=== PATIENT | female | born 1980 | race Caucasian/White ===

== ENCOUNTER 2022-07-30 09:03 | Outpatient (CLI) | payer BC, SELFPAY ==
[2022-07-30 19:46] LABS: Basophils Percent Auto 0.4 % (0.2-1.2); Eosinophils Absolute Auto 0.2 K/mm3 (0-0.3); Eosinophils Percent Auto 2.4 % (0-4.4); Hematocrit 44.7 % (37.0-47.0); Immature Granulocyte Absolute 0.02 K/mm3 (0.00-0.031); Immature Granulocyte Percent A 0.3 % (0-0.5); Lymphocytes Absolute Auto 1.95 K/mm3 (0.9-3.2); Lymphocytes Percent Auto 26.4 % (18.3-44.2); Mean Corpuscular HGB Conc 31.3 g/dl (32-36); Mean Corpuscular Hemoglobin 29.6 pg (26-34); Mean Corpuscular Volume 94.5 fl (80-100); Mean Platelet Volume 10.8 fl (7.4-10.4); Monocytes Absolute Auto 0.5 K/mm3 (0.1-0.6); Monocytes Percent Auto 6.1 % (2.6-8.5); Neutrophils Absolute Auto 4.8 K/mm3 (1.3-6.7); Neutrophils Percent Auto 64.4 % (45.5-73.1); Platelet Count Result 326 k/mm3 (150-375); Red Blood Count 4.73 M/mm3 (4.2-5.4); Red Cell Distribution Width 13.2 % (11.5-14.5); White Blood Count 7.4 K/mm3 (4.5-10.0)
[2022-07-30 20:51] LABS: Alanine Aminotransferase 28 U/L (6-35); Albumin Level 4.5 g/dL (3.5-5.1); Alkaline Phosphatase 74 U/L (38-126); Anion Gap 8 mmol/L (8-16); Aspartate Amino Transferase 59 U/L (14-36); Bilirubin,Total 0.5 mg/dL (0.2-1.3); Blood Urea Nitrogen 14 mg/dL (7-17); Calcium 8.4 mg/dL (8.4-10.2); Carbon Dioxide 31 mmol/L (22-30); Chloride 101 mmol/L (98-107); Cholesterol 202 mg/dL (0-200); Estimated Glomerular Filt Rate > 60; Glucose 82 mg/dL (65-110); HDL Direct 31 mg/dL; Potassium 4.3 mmol/L (3.4-5.0); Sodium 140 mmol/L (137-145); Triglycerides 213 mg/dL (<150)
[2022-07-30 21:03] LABS: LDL Cholesterol Direct 108 mg/dL
== END 2022-07-30 09:04 | disposition home or self-care (01) ==
LOC: ANHBWCLAB 09:04
PROVIDERS: PCP Family Medicine; Visit Provider Nurse Practitioner
DX: E66.9 Obesity, unspecified (principal); N39.3 Stress incontinence (female) (male); E78.5 Hyperlipidemia, unspecified; Z87.19 Personal history of other diseases of the digestive system; T78.40XA Allergy, unspecified, initial encounter
CPT/HCPCS: 36415; 80053; 80061; 84443; 85025

== ENCOUNTER → 2022-11-19 11:03 | Outpatient (CLI) | payer BC, SELFPAY ==
--- NOTE | ~2022-11-19 | CT_ITS ---
EXAMINATION: CT IAC/mastoids BI wo con DATE: 11/19/2022 11:47 INDICATION: Otalgia of left ear. TECHNIQUE: Computed tomography (CT) of the temporal bones was performed without intravenous contrast. Automated exposure control and iterative reconstruction technique were employed. The dose-length pro duct was 222.66 mGy-cm. COMPARISON: None FINDINGS: The visualized portions of the parotid glands are unremarkable. RIGHT TEMPORAL BONE: The internal auditory canal, cochlea, vestibule, semicircular canals, vestibular aqueduct, carotid ca nal, jugular bulb, facial nerve course, ossicles, Prussak space, scutum, tympanic membrane, mastoid a ir cells, and external auditory canal are normal. LEFT TEMPORAL BONE: The internal auditory canal, cochlea, vestibule, semicircular canals, vestibular aqueduct, carotid ca nal, jugular bulb, facial nerve course, ossicles, Prussak space, scutum, tympanic membrane, mastoid a ir cells, and external auditory canal are normal IMPRESSION: 1. Normal temporal bones. Reviewed, dictated and finalized at location E. IMPRESSION: 1. Normal temporal bones.
== END ==
PROVIDERS: PCP Otolaryngology; Visit Provider Otolaryngology
DX: H92.02 Otalgia, left ear (principal)
CPT/HCPCS: 70480

== ENCOUNTER 2022-12-23 07:31 | Outpatient (CLI) | payer BC, SELFPAY ==
[2022-12-23 18:30] LABS: Hematocrit 44.2 % (37.0-47.0); Hemoglobin 13.6 g/dL (12.0-15.0); Mean Corpuscular HGB Conc 30.8 g/dl (32-36); Mean Corpuscular Hemoglobin 29.7 pg (26-34); Mean Corpuscular Volume 96.5 fl (80-100); Platelet Count Result 287 k/mm3 (150-375); Red Blood Count 4.58 M/mm3 (4.2-5.4); Red Cell Distribution Width 12.8 % (11.5-14.5); White Blood Count 11.1 K/mm3 (4.5-10.0)
[2022-12-23 18:40] LABS: Alanine Aminotransferase 18 U/L (6-35); Albumin Level 4.4 g/dL (3.5-5.1); Alkaline Phosphatase 75 U/L (38-126); Anion Gap 7 mmol/L (8-16); Aspartate Amino Transferase 36 U/L (14-36); Bilirubin,Total 0.6 mg/dL (0.2-1.3); Blood Urea Nitrogen 19 mg/dL (7-17); Calcium 8.7 mg/dL (8.4-10.2); Carbon Dioxide 29 mmol/L (22-30); Chloride 102 mmol/L (98-107); Estimated Glomerular Filt Rate 54; Glucose 86 mg/dL (65-110); Sodium 138 mmol/L (137-145)
== END 2022-12-23 07:32 | disposition home or self-care (01) ==
LOC: ANHBWCLAB 07:32
PROVIDERS: PCP Nurse Practitioner Adult Health; Visit Provider Nurse Practitioner Adult Health
DX: R53.83 Other fatigue (principal)
CPT/HCPCS: 36415; 80053; 84443; 85027

== ENCOUNTER 2023-02-04 10:29 | Outpatient (CLI) | payer BC, SELFPAY ==
[2023-02-04 19:27] LABS: Alanine Aminotransferase 25 U/L (6-35); Albumin Level 4.1 g/dL (3.5-5.1); Alkaline Phosphatase 67 U/L (38-126); Aspartate Amino Transferase 64 U/L (14-36); Bilirubin,Total 0.4 mg/dL (0.2-1.3)
== END 2023-02-04 10:30 | disposition home or self-care (01) ==
LOC: ANHBWCLAB 10:30
PROVIDERS: PCP Nurse Practitioner Adult Health; Visit Provider Nurse Practitioner Adult Health
DX: Z51.81 Encounter for therapeutic drug level monitoring (principal)
CPT/HCPCS: 36415; 80076

== ENCOUNTER 2023-06-03 07:23 | Outpatient (CLI) | payer BC, SELFPAY ==
[2023-06-03 19:14] LABS: Basophils Percent Auto 0.5 % (0.2-1.2); Eosinophils Absolute Auto 0.2 K/mm3 (0-0.3); Eosinophils Percent Auto 2.9 % (0-4.4); Hematocrit 43.1 % (37.0-47.0); Hemoglobin 13.5 g/dL (12.0-15.0); Immature Granulocyte Absolute 0.02 K/mm3 (0.00-0.031); Immature Granulocyte Percent A 0.2 % (0-0.5); Lymphocytes Absolute Auto 2.28 K/mm3 (0.9-3.2); Lymphocytes Percent Auto 27.9 % (18.3-44.2); Mean Corpuscular HGB Conc 31.3 g/dl (32-36); Mean Corpuscular Hemoglobin 29.5 pg (26-34); Mean Corpuscular Volume 94.3 fl (80-100); Mean Platelet Volume 10.9 fl (7.4-10.4); Monocytes Absolute Auto 0.6 K/mm3 (0.1-0.6); Monocytes Percent Auto 7.5 % (2.6-8.5); Platelet Count Result 305 k/mm3 (150-375); Red Blood Count 4.57 M/mm3 (4.2-5.4); White Blood Count 8.2 K/mm3 (4.5-10.0)
[2023-06-03 19:32] LABS: Alanine Aminotransferase 18 U/L (6-35); Albumin Level 4.2 g/dL (3.5-5.1); Alkaline Phosphatase 69 U/L (38-126); Anion Gap 4 mmol/L (8-16); Aspartate Amino Transferase 45 U/L (14-36); Bilirubin,Total 0.6 mg/dL (0.2-1.3); Blood Urea Nitrogen 18 mg/dL (7-17); Calcium 8.7 mg/dL (8.4-10.2); Carbon Dioxide 28 mmol/L (22-30); Chloride 103 mmol/L (98-107); Cholesterol 219 mg/dL (0-200); Estimated Glomerular Filt Rate > 60; Glucose 80 mg/dL (65-110); HDL Direct 30 mg/dL; Potassium 3.8 mmol/L (3.4-5.0); Sodium 135 mmol/L (137-145); Triglycerides 235 mg/dL (<150)
[2023-06-03 19:43] LABS: LDL Cholesterol Direct 126 mg/dL
[2023-06-05 11:53] LABS: Hemoglobin A1C 5.6 % (<5.7)
== END 2023-06-03 07:24 | disposition home or self-care (01) ==
PROVIDERS: PCP Nurse Practitioner Adult Health; Visit Provider Nurse Practitioner Adult Health
DX: E78.5 Hyperlipidemia, unspecified (principal); E66.9 Obesity, unspecified
CPT/HCPCS: 36415; 80053; 80061; 83036; 84443; 85025

== ENCOUNTER 2023-09-25 15:08 | Outpatient (CLI) | payer BC, SELFPAY ==
--- NOTE | ~2023-09-25 | MM_ITS ---
EXAMINATION: MM screening benja BI w michael HISTORY: Screening TECHNIQUE: Craniocaudal and mediolateral oblique 3-D tomosynthesis images were obtained and synthetic 2-D images were generated. CAD analysis was submitted and interpreted. COMPARISON: No prior mammogram is available for comparison at this institution. BREAST PARENCHYMAL COMPOSITION: Not dense: There are scattered areas of fibroglandular density. FINDINGS: There is no evidence of suspicious mass, calcification, or architectural distortion to sugg est malignancy in either breast. There has been no suspicious interval change. IMPRESSION: 1. No mammographic evidence of malignancy. 2. Recommend routine screening mammography in one year. BI-RADS Category 1: Negative Reviewed, dictated and finalized at location B.
== END 2023-09-25 15:09 ==
LOC: MICIMG 15:09
PROVIDERS: PCP Obstetrics & Gynecology; Visit Provider Obstetrics & Gynecology
DX: Z12.31 Encounter for screening mammogram for malignant neoplasm of breast (principal)
CPT/HCPCS: 77063; 77067

== ENCOUNTER 2023-10-26 08:49 | Outpatient (CLI) | payer BC, SELFPAY ==
[2023-10-26 20:18] LABS: Hematocrit 45.8 % (37.0-47.0); Hemoglobin 14.4 g/dL (12.0-15.0); Mean Corpuscular HGB Conc 31.4 g/dl (32-36); Mean Corpuscular Volume 92.3 fl (80-100); Platelet Count Result 240 k/mm3 (150-375); Red Blood Count 4.96 M/mm3 (4.2-5.4); Red Cell Distribution Width 13.2 % (11.5-14.5); White Blood Count 11.1 K/mm3 (4.5-10.0)
[2023-10-26 20:28] LABS: Alanine Aminotransferase 36 U/L (6-35); Albumin Level 4.5 g/dL (3.5-5.1); Alkaline Phosphatase 71 U/L (38-126); Anion Gap 11 mmol/L (4-12); Aspartate Amino Transferase 65 U/L (14-36); Bilirubin,Total 0.4 mg/dL (0.2-1.3); Blood Urea Nitrogen 13 mg/dL (7-17); Calcium 8.4 mg/dL (8.4-10.2); Carbon Dioxide 26 mmol/L (22-30); Chloride 94 mmol/L (98-107); Estimated Glomerular Filt Rate > 60; Glucose 85 mg/dL (65-110); Potassium 3.9 mmol/L (3.4-5.0); Sodium 131 mmol/L (137-145)
== END 2023-10-26 08:50 | disposition home or self-care (01) ==
LOC: ANHBWCLAB 08:51
PROVIDERS: PCP Nurse Practitioner Adult Health; Visit Provider Nurse Practitioner Adult Health
DX: R53.83 Other fatigue (principal); R00.0 Tachycardia, unspecified
CPT/HCPCS: 36415; 80053; 85027

== ENCOUNTER 2023-12-08 09:10 | Outpatient (CLI) | payer BC, SELFPAY ==
[2023-12-08 19:50] LABS: Alanine Aminotransferase 19 U/L (6-35); Albumin Level 4.3 g/dL (3.5-5.1); Alkaline Phosphatase 64 U/L (38-126); Anion Gap 11 mmol/L (4-12); Aspartate Amino Transferase 32 U/L (14-36); Bilirubin,Total 0.2 mg/dL (0.2-1.3); Blood Urea Nitrogen 18 mg/dL (7-17); Calcium 8.8 mg/dL (8.4-10.2); Carbon Dioxide 26 mmol/L (22-30); Chloride 102 mmol/L (98-107); Estimated Glomerular Filt Rate > 60; Glucose 91 mg/dL (65-110); Sodium 139 mmol/L (137-145)
[2023-12-08 20:56] LABS: Add Urine Microscopic? YES; Appearance Urine Cloudy (Clear); Bacteria Urine 4+ /hpf; Bilirubin Urine Negative (Negative); Blood Urine 3+ (Negative); Budding Yeast Urine Present /hpf; Color Urine Yellow (Yellow); Glucose Urine UA Negative (Negative); Hyaline Casts Urine Present /lpf; Ketones Urine Trace mg/dL (Negative); Leukocyte Esterase Ur 2+ LEU/UL (Negative); Need Manual Microscopic Reviewed; Nitrate Urine Positive (Negative); Protein Urine 1+ mg/dL (Negative); Specific Grav Ur 1.025 (1.001-1.035); Squamous Epithelial Cell Urine None Seen /hpf (Few); Urobilinogen Urine 0.2 mg/dL (<2.0); WBC Urine >100 /hpf (0-3); pH Urine 5.5 (5.0-9.0)
== END 2023-12-08 09:11 | disposition home or self-care (01) ==
PROVIDERS: PCP Nurse Practitioner Adult Health; Visit Provider Nurse Practitioner Adult Health
DX: R39.9 Unspecified symptoms and signs involving the genitourinary system (principal); E87.1 Hypo-osmolality and hyponatremia
CPT/HCPCS: 36415; 80053; 81001; 87077; 87086; 87088; 87186

== ENCOUNTER 2024-03-07 10:41 | Outpatient (CLI) | payer BC, SELFPAY ==
[2024-03-07 20:23] LABS: Anion Gap 4 mmol/L (4-12); Blood Urea Nitrogen 16 mg/dL (7-17); Carbon Dioxide 30 mmol/L (22-30); Chloride 101 mmol/L (98-107); Estimated Glomerular Filt Rate > 60; Glucose 91 mg/dL (65-110); Potassium 4.1 mmol/L (3.4-5.0); Sodium 135 mmol/L (137-145)
== END 2024-03-07 10:42 | disposition home or self-care (01) ==
LOC: ANHBWCLAB 10:42
PROVIDERS: PCP Nurse Practitioner Adult Health; Visit Provider Nurse Practitioner Adult Health
DX: E87.1 Hypo-osmolality and hyponatremia (principal)
CPT/HCPCS: 36415; 80048

== ENCOUNTER 2024-05-24 06:38 | Outpatient (CLI) | payer BC, SELFPAY ==
--- OUTSIDE RECORDS SUMMARY | 2024-05-24 06:41 | XMS_ITS | Referral Summary ---
Author Organization [facility] [address] Address [address] [place] [address] Phone Care Team Providers Care Professor Of Floriculture Name Role Phone Will Foss MD Primary Care Provider [phone] Conrado Em MD Unavailable [phone] Allergies No known active allergies Medications multivitamin (MULTIPLE VITAMINS) tablet tablet take 1 tablet by oral route every day with food 0 0 12/06/2014 Active Lactobacillus acidophilus (PROBIOTIC) 10 billion cell capsule 0 0 12/06/2014 Active valACYclovir (VALTREX) 1 gram tabletIndication s:Recurrent herpes labialis Take 1 tablet (1,000 mg total) by mouth 2 (two) times a day Take for 5-7 days as needed for cold sores. 30 tablet 3 08/13/2018 Active Active Problems Problem Noted Date Diagnosed Date Hip pain 03/16/2014 Assessment & Plan (04/06/2017 8:14 AM FAMILY SERVICES ASSISTANT): Since the of her youngest who is now three, she has had intermittent problems with pain in the right hip, usually positional. Sometimes it bothers her when climbing steps. However for the past couple of weeks or so, she has had more persistent pain. It is located laterally and anteriorly high in the hip, nearly over the anterior iliac crest. On exam, there is no increased pain with range of motion of the hip. There is no localized tenderness or swelling. She denies having radiating pain from the back to the hip or down her leg. Most likely this is a little bit of capsulitis or less likely a labral injury of some kind. For now, we will try a little nonsteroidal and some gentle stretching exercises such as with yoga. If she is still symptomatic after two weeks, she should return for re-evaluation and referral. 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 Last summer, she was able to lose about 30 lb in a weight loss program, but gained all of it back when she moved home again. She knows what to do and how to do it but does not have the will power. We went over strategies for lifestyle change and maintaining weight loss. She may be moving out of the local area, so the change in environment might help. Follow-up in a year if she is still in the local area. Recurrent herpes labialis 06/25/2002 Overview (06/19/2016): Recurrent cold sores Assessment & Plan (07/02/2018 3:04 PM CDT): She has Valtrex for use as needed. Continue same. Assessment & Plan (04/06/2017 8:12 AM FAMILY SERVICES ASSISTANT): Subjectively, she thinks there has been an increase in frequency of cold sores. She thinks she might take the Valtrex for a week at a time instead of just a couple of days, and I think that will be fine. She also expressed concern about dry eyes and dry mouth and whether she might have Sjogren syndrome or something wrong with her immune system. Her mother was just recently diagnosed with Sjogren syndrome. All of these are possibilities, and I would be happy to provide her with a referral if symptoms are persistent or worsening. Metabolic syndrome 06/25/2002 Overview (06/20/2016): Metabolic syndrome Mixed hyperlipidemia 06/25/1992 Overview (07/02/2018): Images from the original note were not included. Assessment & Plan (07/11/2018 2:54 PM CDT): She has relatively mild elevation of LDL and a low HDL. Findings on her most recent lipid panel are similar to those in the past. It is probably due mostly to her diet which she admits is not the greatest. She likes her sweets. Triglycerides are slightly high. We discussed the importance of a good diet in controlling cholesterol as well as weight. Overall [place] risk remains quite low at 3% over 10 years. Resolved Problems Problem Noted Date Diagnosed Date Resolved Date Dysuria 01/25/2017 07/02/2018 Assessment & Plan (01/26/2017 9:58 AM FAMILY SERVICES ASSISTANT): She developed urinary frequency and a pressure-like sensation with voiding last night. There is no burning as such, but there is definite discomfort with voiding. She has had no fever. We are sending her for a urinalysis and starting empiric antibiotic therapy with nitrofurantoin. If she does not have complete resolution of symptoms or if the organism is resistant, we will be revising treatment. She should return within a week not better, certainly if getting worse. 06/01/2013 05/19/2018 Papanicolaou smear of cervix with high grade squamous intraepithelial lesion (HGSIL) 08/18/2012 05/19/2018 Low grade squamous intraepit helial lesion (LGSIL) on cervicovaginal cytologic smear 03/30/2012 05/19/2018 Immunizations Immunization Administration Dates Next Due Influenza, Quadrivalent, Spl it, Intramuscular 02/15/2016 Influenza, Quadrivalent, Spl it, Preservative Free, Intramuscular 01/12/2018,12/10/2017,12/18/2016 Tdap 01/20/2014 Social History Tobacco Use Types Packs/Day Years Used Date Smoking Tobacco: Never Smokeless Tobacco: Never Comments Unknown Sex and Gender Information Value Date Recorded Sex Assigned at Not on file Legal Sex Female 10:03 AM FAMILY SERVICES ASSISTANT Gender Identity Not on file Sexual Orientation Not on file Last Filed Vital Signs Vital Sign Reading Time Taken Comments Blood Pressure 110/70 07/02/2018 2:03 PM CDT Pulse 78 07/02/2018 2:03 PM CDT Temperature 36.5 C (97.7 F) 07/02/2018 2:03 PM CDT Respiratory Rate 18 07/02/2018 2:03 PM CDT Oxygen Saturation 97% 07/02/2018 2:03 PM CDT Inhaled Oxygen Concentration - - Weight 95.3 kg (210 lb) 07/02/2018 2:03 PM CDT Height 158.8 cm (5' 2.5 ) 07/02/2018 2:03 PM CDT Body Mass Index 37.8 07/02/2018 2:03 PM CDT Plan of Treatment Not on file Insurance [facility] ANTHEM TRADITIONAL Care Teams Professor Of Floriculture Relationship Specialty Start Date End Date Will Foss MD [address] [place] [id number] PCP - General 06/25/12 Conrado Em MD [address] [facility] [address] [place] [address] Consulting Physician Obstetrics and Gynecology 01/26/17
--- OUTSIDE RECORDS SUMMARY | 2024-05-24 06:41 | XMS_ITS | Continuity of Care Document ---
Author Organization [facility] Address [address] [place] [address] [address] [place] [address] Phone Care Team Providers Care Net Developer Software Engineer C Name Role Phone Nilya Wilde MD, FACS Unavailable Unavailab le Allergies, Adverse Reactions, Alerts Substance Reaction Status Criticality No Known Allergies Active No Inform ation Procedures Procedure Date No Charge Optomap Fundus Photos 018 Corneal Topography Office/outpatient Visit, New Advance Directives Directive Yes / No Effective Date File Name No Information Encounters Encounter Description Practice Location Reason(s) For Visit Diagnoses Date Provider Providers Copied on Encounter Office/outpa tient Visit, [facility], [address], [place], [place], [id number], [place] tel:[phone] ANTOLIN SMART Professional Cornea evaluation (chief complaint) Dry eye syndrome of bilateral lacrimal glands [address]. [address], [place], [place], [id number], [place]. tel:[phone] Referring Provider: Peggy Queen OD, [address], [place], [address]. tel:[phone] Family History Family Member Type Diagnosis Age At Onset Mother Problem (finding) Thygeson's Problem (finding) Family history of glauc gregor Payers Payer name Insurance type Covered constitution party ID Authoriza tion(s) [place] BL [id number] Social History Type Description Quantity Date Captured Comments Alcohol Use Details Caffeine Use Details No Tobacco Use Status Current non-smoker 18 Smoking Status Never smoker Non-Smoking Tobacco Use Details : No Details Available : No Details Available Sex Female Chief Complaint And Reason For Visit From encounter dated '09/22/2017 14:45'. Cornea evaluation (chief complaint). Description: The 36 year old female presents for a cornea evaluation per Dr. Peggy Queen. Patient states she hasn't been able to wear contacts for 7 years only on special occasions she would wear Acuvue 1 days. Patient states her mother has hx of Thygeson's and wonders if thats what she has. Patient states her eyes are fine today. Patient is from [place]. Reason For Referral Reason For Referral No Information Plan Of Treatment Date Type Action Status Patient Education Dry Eyes: Care Instruct ions completed History Of Present Illness Encounter Date Complaint History Of Prese nt Illness Cornea evaluation The 36 year ol d female presents for a cornea evaluation per Dr. Peggy Queen. Patient states she hasn't been able to wear contacts for 7 years only on special occasions she would wear Acuvue 1 days. Patient states her mother has hx of Thygeson's and wonders if thats what she has. Patient states her eyes are fine today. Patient is from [place]. Functional Status Date Functional Assessmen t No Information Instructions Date Instruction Additional Infor josé luis RTC PRN Related to Dry e ye syndrome of bilateral lacrimal glands Impression/Plan Related to Dry e ye syndrome of bilateral lacrimal glands Educational material provided Re lated to Dry eye syndrome of bilateral lacrimal glands AT's recommended Related to Dry eye syndrome of bilateral lacrimal glands Assessments Type Assessment Date assessment Dry eye syndrome of bilateral la crimal glands impression Dry eye syndrome of bilateral la crimal glands: H04.123 Patient Care Teams Name Effective Dates (start - stop) Status Members No Information
--- OUTSIDE RECORDS SUMMARY | 2024-05-24 06:41 | XMS_ITS | Clinical Summary ---
Author Organization [facility] Address [address] [place] [address] Care Team Providers Care Pole Framer Machine Name Role Phone Unavailable Primary Care Provider Unavailabl e Social History Tobacco Use Types Packs/Day Years Used Date Smoking Tobacco: Never Assessed Comments Unknown Sex and Gender Information Value Date Recorded Sex Assigned at Not on file Legal Sex Female 7:22 AM CDT Gender Identity Not on file Sexual Orientation Not on file Plan of Treatment Health Maintenance Due Date Last Done Comments Cervical Cancer Screening Pa p Smear (Age 30 to 64) Every 3 Years 1980 Annual Physical 09/30/1983 Hepatitis C 1998 DTaP, Tdap and Td Vaccines ( 1 - Tdap) 09/30/1999 Hepatitis B Vaccines (1 of 3 - 19+ 3-dose series) 09/30/1999 Cervical Cancer Screening Pa p with HPV Testing (Age 30 to 64) Every 5 Years 2010 Cervical Cancer Screening with HPV 2010 Mammogram Screening 2020 COVID-19 Vaccine (2023-2 5 season) 2023 Influenza Adult (#1) 2023 HPV Vaccines Aged Out No longer eligi ble based on patient's age to complete this topic Meningococcal B Vaccine Aged Out No l onger eligible based on patient's age to complete this topic Meningococcal Vaccine Aged Out No shaheed rell eligible based on patient's age to complete this topic Pneumococcal Vaccine: Pediat rics (0 to 5 Years) and At-Risk Patients (6 to 64 Years) Aged Out No longer eligible b ased on patient's age to complete this topic RSV Immunizations Under 20 Months Aged Out No longer eligible based on patient's age to complete this topic Insurance [facility]
--- OUTSIDE RECORDS SUMMARY | 2024-05-24 06:41 | XMS_ITS | Clinical Summary ---
Author Organization [facility] [address] Address [address] [place] [address] Phone Care Team Providers Care Professor Of Pathology Name Role Phone Will Foss MD Primary Care Provider [phone] Conrado Em MD Unavailable [phone] Allergies No known active allergies Medications multivitamin [...] 03/16/2014 Assessment & Plan (04/06/2017 8:14 AM DELIVERY COORDINATOR): Since the of her youngest who is [...] same. Assessment & Plan (04/06/2017 8:12 AM DELIVERY COORDINATOR): Subjectively, she thinks there has been an [...] controlling cholesterol as well as weight. Overall [place] risk remains quite low at 3% over 10 years. Resolved Problems Problem Noted Date Diagnosed Date Resolved Date Dysuria 01/25/2017 07/02/2018 Assessment & Plan (01/26/2017 9:58 AM DELIVERY COORDINATOR): She developed urinary frequency and a pressure-like [...] it, Preservative Free, Intramuscular 01/12/2018,12/10/2017,12/18/2016 Tdap 01/20/2014 Surgical History Surgery Date Site/Laterality Comments CERVICAL BIOPSY 03/24/2012 Dr. Morgan. 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 Morales RIGO 1 High risk HPV infection 2009 Followed by TELEPRINTER Family History Medical History Relation Name Comments Hyperlipidemia Father Hyperlipidemi a; Hypertension Mother Hypertension; Sjogren's syndrome Mother Relation Name Status Comments Father Mother Social History Tobacco Use Types Packs/Day Years Used Date Smoking Tobacco: Never Smokeless Tobacco: Never Comments Unknown Sex and Gender Information Value Date Recorded Sex Assigned at Not on file Legal Sex Female 10:03 AM DELIVERY COORDINATOR Gender Identity Not on file Sexual Orientation Not on file Obstetrics History Last Filed Vital Signs Vital Sign Reading [...] Plan of Treatment Not on file Insurance [facility] ANTH TRADITIONAL Care Teams Professor Of Pathology Relationship Specialty Start Date End Date Will Foss MD [address] [place] [id number] PCP - General 06/25/12 Conrado Em MD [address] [address] Consulting Physician Obstetrics and Gynecology 01/26/17
[2024-05-24 19:34] LABS: Anion Gap 5 mmol/L (4-12); Blood Urea Nitrogen 12 mg/dL (7-17); Calcium 8.5 mg/dL (8.4-10.2); Carbon Dioxide 28 mmol/L (22-30); Chloride 104 mmol/L (98-107); Cholesterol 175 mg/dL (0-200); Estimated Glomerular Filt Rate > 60; Glucose 81 mg/dL (65-110); HDL Direct 30 mg/dL; Potassium 4.7 mmol/L (3.4-5.0); Sodium 137 mmol/L (137-145); Triglycerides 204 mg/dL (<150)
[2024-05-24 19:44] LABS: LDL Cholesterol Direct 89 mg/dL
== END 2024-05-24 06:39 | disposition home or self-care (01) ==
LOC: ANHBWCLAB 06:39
PROVIDERS: PCP Nurse Practitioner Adult Health; Visit Provider Nurse Practitioner Adult Health
DX: E66.9 Obesity, unspecified (principal); E78.5 Hyperlipidemia, unspecified
CPT/HCPCS: 36415; 80048; 80061; 83036

== ENCOUNTER 2024-10-31 07:19 | Outpatient (CLI) | payer BC, SELFPAY ==
[2024-10-31 19:27] LABS: Hemoglobin A1C 5.3 % (<5.7)
[2024-10-31 20:12] LABS: Alanine Aminotransferase 25 U/L (6-35); Albumin Level 4.3 g/dL (3.5-5.1); Alkaline Phosphatase 62 U/L (38-126); Anion Gap 6 mmol/L (4-12); Aspartate Amino Transferase 60 U/L (14-36); Bilirubin,Total 0.3 mg/dL (0.2-1.3); Blood Urea Nitrogen 14 mg/dL (7-17); Calcium 8.7 mg/dL (8.4-10.2); Carbon Dioxide 25 mmol/L (22-30); Chloride 104 mmol/L (98-107); Cholesterol 200 mg/dL (0-200); Estimated Glomerular Filt Rate > 60; Glucose 84 mg/dL (65-110); HDL Direct 31 mg/dL; Potassium 3.8 mmol/L (3.4-5.0); Sodium 135 mmol/L (137-145); Total Protein 7.8 g/dL (6.3-8.2); Triglycerides 218 mg/dL (<150)
== END 2024-10-31 07:20 | disposition home or self-care (01) ==
LOC: ANHBWCLAB 07:20
PROVIDERS: PCP Nurse Practitioner Adult Health; Visit Provider Nurse Practitioner Adult Health
DX: E78.5 Hyperlipidemia, unspecified (principal)
CPT/HCPCS: 36415; 80053; 80061; 83036

== ENCOUNTER 2024-12-28 16:03 | Outpatient (CLI) | payer BC, SELFPAY ==
--- NOTE | ~2024-12-28 | MM_ITS ---
EXAMINATION: MM screening [facility] BI w michael HISTORY: Screening TECHNIQUE: Craniocaudal and mediolateral oblique 3-D tomosynthesis images were obtained and synthetic 2-D images were generated. CAD analysis was submitted and interpreted. COMPARISON: 09/25/2023 BREAST PARENCHYMAL COMPOSITION: There are scattered areas of fibroglandular density. FINDINGS: There is no evidence of suspicious mass, calcification, or architectural distortion to suggest malignancy. Focal asymmetry in the upper- outer quadrant of the left breast, middle to posterior depth. Focal asymmetry in the upper-outer quadrant of the right breast, posterior depth. IMPRESSION: 1. Focal asymmetry in the upper-outer quadrant of the left breast, middle to posterior depth. The study is incomplete. A diagnostic mammogram and a diagnostic ultrasound are recommended. 2. Focal asymmetry in the upper-outer quadrant of the right breast, posterior depth. The study is incomplete. A diagnostic mammogram and a diagnostic ultrasound are recommended. BI-RADS 0: Incomplete-Need additional imaging evaluation. Reviewed, dictated and finalized at location Q. IMPRESSION: 1. Focal asymmetry in the upper-outer quadrant of the left breast, middle to po sterior depth. The study is incomplete. A diagnostic mammogram and a diagnostic ultrasound are recommended. 2. Focal asymmetry in the upper-outer quadrant of the right breast, posterior d epth. The study is incomplete. A diagnostic mammogram and a diagnostic ultrasou nd are recommended. BI-RADS 0: Incomplete-Need additional imaging evaluation.
== END 2024-12-28 16:04 | disposition home or self-care (01) ==
PROVIDERS: PCP Nurse Practitioner Family; Visit Provider Nurse Practitioner Adult Health
DX: Z12.31 Encounter for screening mammogram for malignant neoplasm of breast (principal); N64.89 Other specified disorders of breast
CPT/HCPCS: 77063; 77067

== ENCOUNTER 2025-01-09 08:49 | Outpatient (CLI) | payer BC, SELFPAY ==
--- NOTE | ~2025-01-09 | MMUS_ITS ---
EXAMINATION: MM diagnostic benja BI w michael, US breast BI limited HISTORY: Follow-up breast asymmetries TECHNIQUE: Additional 3-D tomosynthesis images of the breasts were performed and synthetic 2-D images were generated. CAD analysis was submitted and interpreted. High resolution limited bilateral breast ultrasound was performed. COMPARISON: Comparison to multiple prior studies sequentially, with oldest reviewed study dated 09/25/2023. BREAST PARENCHYMAL COMPOSITION: Not dense: There are scattered areas of fibroglandular density. FINDINGS: MAMMOGRAPHIC FINDINGS: There are no suspicious masses, calcifications or architectural distortion in either breast to suggest malignancy. Bilateral breast asymmetries compress with spot views, compatible with superimposed fibroglandular tissue. ULTRASOUND: Limited bilateral breast ultrasound: In the right breast at 11:00, 7 cm from the nipple there is a 4 mm cyst. No suspicious masses in either breast to suggest malignancy. IMPRESSION: 1. No evidence for malignancy in either breast. 2. Routine yearly screening mammogram and regular clinical breast examination are recommended. BI-RADS Category 1: Negative Reviewed, dictated and finalized at location B. IMPRESSION: 1. No evidence for malignancy in either breast. 2. Routine yearly screening mammogram and regular clinical breast examination a re recommended. BI-RADS Category 1: Negative
== END 2025-01-09 08:50 | disposition home or self-care (01) ==
LOC: MICIMG 08:50
PROVIDERS: PCP Nurse Practitioner Adult Health; Visit Provider Nurse Practitioner Adult Health
DX: R92.8 Other abnormal and inconclusive findings on diagnostic imaging of breast (principal)
CPT/HCPCS: 76642; 77062; 77066; G0279

== ENCOUNTER 2025-02-16 19:46 | Emergency (ER) | payer BC, SELFPAY ==
--- NOTE | 2025-02-16 19:51 | ED.GENADULT ---
HPI - General Adult General Chief complaint: Skin/Abscess/Foreign Body Stated complaint: rash on neck and chest Time Seen by Provider: 02/16/25 19:54 Source: patient, RN notes reviewed and old records reviewed Mode of arrival: ambulatory Limitations: no limitations History of Present Illness HPI narrative: 44-year-old female presents to the [facility] with concerns of a red non itchy, non burning, nonpainful rash to the front of her neck into her chest area. Patient denies any new creams ointments lotions detergents. Denies any new foods. States that she did take Benadryl which for helped the rash had 1st. Does take Zyrtec daily. symptoms started yesterday has tried using hydrocortisone cream Related Data Home Medications ?Medication ?Instructions ?Recorded ?Confirmed ?Last Taken ?Type glucosamine-chondroitin 250 mg-200 2 tablet PO TID 07/29/22 06/02/23 Unknown History mg tablet (Osteo Bi-Flex) loratadine 5 mg/5 mL oral solution 10 mg PO ONCE 07/29/22 06/02/23 Unknown History (Claritin) Allergies Allergy/AdvReac Type Severity Reaction Status Date / Time No Known Allergies Allergy Verified 02/16/25 19:49 Review of Systems Review of Systems: All systems reviewed & are unremarkable except as noted in HPI and below Constitutional: Constitutional: Reports no additional constitutional complaints ENT: Reports system reviewed and no additional complaints, except as documented Cardiovascular: Cardiovascular: Reports no additional cardiovascular complaints, Denies chest pain and Denies dyspnea Respiratory: Respiratory: Reports no additional respiratory complaints, Denies chest congestion, Denies cough and Denies dyspnea Musculoskeletal: Musculoskeletal: Reports no additional musculoskeletal complaints Integumentary/Breasts: Skin/Breast: Reports as per HPI and Reports rash [facility] Family History Family History Father Asthma Mother Heart disease Sibling Hypertension Depression Grandparent Heart disease Social History Social History Smoking status: Never smoker Alcohol intake: current Drinks per week: 2 Alcohol use details: Hard [place] Substance use: never Substance use type: does not use Lack of Transportation: No Lack of Food: Never True Current Housing: I Have Housing Concerned About Future Housing: No Difficulty Paying Gas/Electric Bills: No Difficulty Paying for Meds: No Currently Unemployed: No Education: Bachelor's Degree Difficulty w/ Childcare or Family Care: No Living arrangements: with family Occupation/Education: occupation 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 There is no relevant family history pertinent to the patient complaint. Exam Const: General: cooperative, healthy appearing, comfortable, no acute distress, well developed, alert and well nourished Nutritional Appearance: well nourished Orientation/consciousness: patient oriented x3 Limitations: no limitations HENMT: Head: normal to inspection Mouth: Yes Normal oral and palatal mucosa present, Yes lip normal, Yes tongue normal and Yes moist mucous membranes abnormal Eyes: General: appearance normal, both eyes and all related structures Alignment and Position: alignment normal Neck: Neck: normal visual inspection, full ROM, no lymphadenopathy and no meningeal signs Chest: Chest palpation & inspection: normal inspection of the chest Resp: Effort & Inspection: normal respiratory effort and able to speak in complete sentences Cardio: Rate: regular rate Skin: General skin exam: normal color and no rashes or lesions noted Other: red rash from the anterior neck, down into the chest area. Not raised, not warm to touch, no cellulitic changes, no fluctuant areas. Patient denies any itching burning or pain. Full body images:  1. Red rash, not warm to touch, not raised Neuro: General: patient oriented x3, gait normal, moves all extremities and no meningeal signs Cognition (Neuro): normal cognition Speech: normal speech Gait exam (Neuro): Normal gait present Extrem: General: normal to inspection, full ROM, capillary refill normal and normal gait Psych: Appearance: grossly normal and well kempt Mental Status: mental status grossly normal Speech and movement: Normal speech and movement present and Clear speech present Affect: normal affect Attitude: cooperative Course Course Level of Care: Express Care Visit Vital Signs Vital signs: Vital Signs Temperature 97.6 F 02/16/25 19:52 Pulse Rate 100 02/16/25 19:52 Respiratory Rate 20 02/16/25 19:52 Blood Pressure 144/84 H 02/16/25 19:52 Pulse Oximetry 98 02/16/25 19:52 Oxygen Delivery Room Air 02/16/25 19:52 Temperature 97.6 F 02/16/25 19:52 Pulse Rate 100 02/16/25 19:52 Respiratory Rate 20 02/16/25 19:52 Blood Pressure 144/84 H 02/16/25 19:52 Pulse Oximetry 98 02/16/25 19:52 Oxygen Delivery Room Air 02/16/25 19:52 reviewed MDM MDM Narrative Medical decision making narrative: patient sitting in exam room. Patient is nontoxic, vitals stable. Patient presents with a rash for 1-2 days. Patient has tried Benadryl which with improvement. Reports putting hydrocortisone cream on. Denies any pain, itching or burning. Denies any lip or tongue swelling. No difficulty breathing. Patient denies any new creams or ointments lotions detergents. Denies any new foods. Patient appropriate for outpatient treatment with close follow-up Discharge instructions reviewed with patient, as well as provided in writing per nursing staff. The instructions also include specific and strict return/GO TO THE ER as well as f/u information. All questions have been answered, and the patient deny any further questions with discharge and discharge plan. Some parts of this dictation were generated by voice recognition software and may contain typographical and/or grammatical inaccuracies. Differential Diagnosis Differential Diagnosis: Differential diagnostic considerations for skin/abscess/foreign body issues include abscess of skin or subcutaneous tissue, viral exanthem, dermatophytosis, urticaria, herpes zoster, allergic reaction to drug, cellulitis, eczema, insect bites, impetigo, contact dermatitis, vasculitis. Medical Records I have reviewed the following patient records and this information was taken into consideration when formulating the assessment and plan.: previous clinic visits Critical Care Time Critical Care Time Critical Care Time: No Discharge Plan Discharge Clinical Impression: Contact dermatitis Qualifiers: Contact dermatitis type: unspecified Contact dermatitis trigger: unspecified trigger Qualified Code(s): L25.9 - Unspecified contact dermatitis, unspecified cause Patient Disposition: Home Condition: Stable Instructions: Antibiotic Form, Contact Dermatitis (ED) Additional Instructions: The most important part of your care is follow up with Primary care provider. Take Benadryl 25-50 mg every 8 hours for itching Take Zyrtec every day Take Pepcid 20mg daily for 7 days Take the steroids starting in the morning use the topical cream twice daily Avoid hot showers, Take cool showers. Hot showers will make rashes worse Apply cool compresses every 2-3 hours for 15 minutes Go to the ER for new or worsening symptoms such as shortness of breath. Patient Language: [place] Prescriptions: New prednisone 20 mg tablet See Rx Instructions .Route .COMPLEX Qty: 18 0RF Rx Instructions: Take 60 mg daily for 3 days, 40 mg daily for 3 days, 20 mg daily for 3 days triamcinolone acetonide 0.1 % cream 1 applic topical BID Qty: 30 0RF No Action glucosamine-chondroitin [Osteo Bi-Flex] 250-200 mg tablet 2 tablet PO TID Rx Instructions: give after food/meal loratadine [Claritin] 5 mg/5 mL solution 10 mg PO ONCE bupropion HCl 300 mg tablet extended release 24 hr 300 mg PO QAM Qty: 90 0RF Zepbound 5 mg/0.5 mL solution 5 mg subcut WEEKLY Qty: 2 0RF Zepbound 7.5 mg/0.5 mL solution 7.5 mg subcut WEEKLY Qty: 2 0RF omeprazole 40 mg capsule,delayed release(DR/EC) 40 mg PO DAILY Qty: 30 0RF ondansetron 8 mg tablet,disintegrating 8 mg PO Q12H PRN (Reason: nausea and vomiting) Qty: 30 0RF Zepbound 10 mg/0.5 mL solution See Rx Instructions .ROUTE .COMPLEX Qty: 2 0RF Dose Instruction: INJECT 0.5 ML (10 MG) UNDER THE SKIN ONCE WEEKLY (0.5ML= 50 UNITS) Rx Instructions: INJECT 0.5 ML (10 MG) UNDER THE SKIN ONCE WEEKLY (0.5ML= 50 UNITS) Follow-up/Referrals: Marti Sutton APRN [Primary Care Provider, Family Practice] - 2 Weeks Stand Alone Forms: Work/School Release IP Time of Disposition: 20:06
[2025-02-16 19:52] VITALS: BP 144/84; PULSE 100; RESP 20; TEMP 36.4; O2SAT 98
--- OUTSIDE RECORDS SUMMARY | 2025-02-16 19:52 | XMS_ITS | Clinical Summary ---
Author Organization [facility] Address [address] [place] [id number] Care Team Providers Care Prototype Engineer Name Role Phone Unavailable Primary Care Provider [...] of 3 - 19+ 3-dose series) 09/30/1999 HPV Vaccines (1 - 3-dose SCD M series) 09/30/2007 Cervical Cancer Screening Pa p with HPV Testing (Age 30 to 64) Every 5 Years 2010 Cervical Cancer Screening with HPV 2010 Mammogram Screening 2020 COVID-19 Vaccine (2024-2 6 season) 2024 Influenza Adult (#1) 2024 Hepatitis A Vaccines Aged Out No long er eligible based on patient's age to complete this topic Meningococcal B Vaccine Aged Out No l onger eligible based on patient's age to complete this topic Meningococcal Vaccine Aged Out No shaheed rell eligible based on patient's age to complete this topic Pneumococcal Vaccine: Pediat rics (0 to 5 Years) and At-Risk Patients (6 to 49 Years) Aged Out No longer eligible b ased on patient's age to complete this topic RSV Immunizations Under 20 Months Aged Out No longer eligible based on patient's age to complete this topic Insurance [facility]
== END 2025-02-16 20:12 | disposition home or self-care (01) ==
PROVIDERS: Emergency Provider Nurse Practitioner; PCP Nurse Practitioner Adult Health
DX: L25.9 Unspecified contact dermatitis, unspecified cause (principal)
CPT/HCPCS: 99213; G0463